=== PATIENT | female | born 1950 | race Caucasian/White ===

== ENCOUNTER 2016-10-15 10:33 | Outpatient (CLI) | payer BC ==
--- NOTE | 2016-10-15 12:59 | RAD ---
CHEST TWO VIEWS HISTORY: Pre-op. COMPARISON: Chest two-view 04/10/2014. FINDINGS: Lungs are clear. No pneumothorax or effusion. Cardiac silhouette and mediastinal contours are norm al. IMPRESSION: No acute intrathoracic abnormality. No significant change. POS: [facility]
== END 2016-10-15 10:34 | disposition home or self-care (01) ==
LOC: MADRAD 10:33
DX: Z01.818 Encounter for other preprocedural examination (principal)
CPT/HCPCS: 71020

== ENCOUNTER 2017-10-12 13:35 | Emergency (ER) | payer MEDICARE, BC ==
--- NOTE | 2017-10-12 14:40 | RAD ---
RIGHT WRIST THREE VIEWS: History: Fall. Pain. Comparison: None. FINDINGS: Intercarpal and radiocarpal joint space is preserved. No evidence of a carpal bone fracture. There is a nondisplaced distal ulnar diaphyseal fracture. IMPRESSION: 1. No evidence of a carpal bone fracture. 2. Distal ulnar diaphyseal fracture. POS: [facility]
--- NOTE | 2017-10-12 14:41 | RAD ---
TWO VIEWS RIGHT FOREARM: History: Fall. Injury. Pain. FINDINGS: There is a nondisplaced distal ulnar diaphyseal fracture, best demonstrated on wrist radiographic ser ies. Additional fracture is not appreciated. IMPRESSION: Distal ulnar diaphyseal fracture. POS: [facility]
[2017-10-12] MEDS ORDERED: traMADol HCl 50 MG TAB ONE (14:50)
== END 2017-10-12 15:06 | disposition home or self-care (01) ==
LOC: MADERS 13:35
DX: S52.601A Unspecified fracture of lower end of right ulna, initial encounter for closed fracture (principal); W20.8XXA Other cause of strike by thrown, projected or falling object, initial encounter

== ENCOUNTER 2021-04-25 12:54 | Emergency (ER) | payer OTHER, MEDICARE, BC ==
[~2021-04-25 12:54] MED LIST: Iopamidol 370 76% 100 ML VIAL ONE
[2021-04-25] MEDS ORDERED: Fentanyl 100 MCG/2 ML VIAL ONE (14:15)
[2021-04-25 14:38] LABS: #Basophils 0.1 thou/uL (0.0-0.2); #Lymphocytes 1.4 thou/uL (1.20-3.40); #Monocytes 0.6 thou/uL (0.11-0.59); %Basophils 1.5 % (0.0-1.0); %Eosinophils 0.5 % (0.0-10.0); %Lymphocytes 19.6 % (21.0-51.0); %Monocytes 8.1 % (0.0-10.0); %Neutrophils 70.2 % (42.0-75.0); Hemoglobin 14.8 g/dL (12.0-16.0); Mean Corpuscular HGB CONC 32.6 g/dL (32.0-36.0); Mean Corpuscular Hemoglobin 29.4 pg (27.0-31.0); Mean Corpuscular Volume 90.2 fL (78.0-98.0); Mean Platelet Volume 6.3 fL (7.4-10.4); Platelet Count 283 thou/uL (130-400); RBC Distribution Width 12.3 % (11.5-14.5); Red Blood Cell (RBC) Count 5.03 mill/uL (4.20-5.40); White Blood Cell (WBC) Count 7.1 thou/uL (4.8-10.8)
[2021-04-25 14:54] LABS: ALT (SGPT) 21 U/L (8-55); AST (SGOT) 27 U/L (5-34); Albumin 4.2 g/dL (3.4-4.8); Alkaline Phosphatase 89 U/L (40-110); Anion Gap 15 mmol/L (10-20); BUN (Urea Nitrogen) 16 mg/dL (9.8-20.1); Bilirubin, Total 0.6 mg/dL (0.2-1.2); Calc. Creatinine Clearance 0 mL/min (70-130); Calcium 9.8 mg/dL (7.8-10.44); Carbon Dioxide 23 mmol/L (23-31); Chloride 106 mmol/L (98-107); Globulin 2.9 g/dL (2.4-3.5); Glucose 99 mg/dL (80-115); Potassium 4.5 mmol/L (3.5-5.1); Protein, Total 7.1 g/dL (5.8-8.1); Sodium 139 mmol/L (136-145)
== END 2021-04-25 16:45 | disposition home or self-care (01) ==
LOC: MADERS 12:54
DX: S06.0X0A Concussion without loss of consciousness, initial encounter (principal); S51.012A Laceration without foreign body of left elbow, initial encounter; S00.83XA Contusion of other part of head, initial encounter; S40.022A Contusion of left upper arm, initial encounter; S80.11XA Contusion of right lower leg, initial encounter; S40.011A Contusion of right shoulder, initial encounter; M50.30 Other cervical disc degeneration, unspecified cervical region; K80.20 Calculus of gallbladder without cholecystitis without obstruction; K57.30 Diverticulosis of large intestine without perforation or abscess without bleeding; N28.1 Cyst of kidney, acquired; D32.9 Benign neoplasm of meninges, unspecified; S79.921A Unspecified injury of right thigh, initial encounter; Z79.899 Other long term (current) drug therapy; V44.5XXA Car driver injured in collision with heavy transport vehicle or bus in traffic accident, initial encounter
CPT/HCPCS: 70450; 71260; 72125; 74177; 80053; 85025; 96374; J3010; Q9967